=== PATIENT | male | born 1990 ===

== ENCOUNTER 2018-07-02 17:35 | Emergency (ER) | payer OTHER ==
[~2018-07-02] VITALS: Ht 175.3 cm; Wt 65.9 kg
[~2018-07-02 17:35] MED LIST: HYDR-3307; METH750T87
[2018-07-02 17:50] VITALS: BP 123/73
[2018-07-02] MEDS ORDERED: METHOCARBAMOL 750 MG TABLET ONE (18:16)
[2018-07-02] MEDS ORDERED: KETOROLAC 30 MG/1 ML ONE (18:16)
[2018-07-02] MEDS ORDERED: METHOCARBAMOL 750 MG TABLET PO ONE (18:30)
[2018-07-02] MEDS ORDERED: KETOROLAC 30 MG/1 ML IM ONE (18:30)
== END 2018-07-02 19:38 | disposition home or self-care (01) ==
LOC: ED 19:21
DX: M54.6 Pain in thoracic spine (principal); S16.1XXA Strain of muscle, fascia and tendon at neck level, initial encounter; F17.200 Nicotine dependence, unspecified, uncomplicated; V89.2XXA Person injured in unspecified motor-vehicle accident, traffic, initial encounter; Y93.89 Activity, other specified; Y99.8 Other external cause status; Y92.410 Unspecified street and highway as the place of occurrence of the external cause
CPT/HCPCS: 71101; 72072; 72125; 96372; 99284; J1885

== ENCOUNTER 2020-06-04 07:15 | Emergency (ER) | payer OTHER ==
[~2020-06-04] VITALS: Ht 172.7 cm; Wt 65.0 kg
[~2020-06-04 07:15] MED LIST changes: +HYDR-3246; -HYDR-3307
[2020-06-04 07:22] VITALS: BP 124/63
[2020-06-04] MEDS ORDERED: SODIUM CHLORIDE FLUSH 10ML SYR IVF ONE (08:30)
[2020-06-04 08:55] LABS: BASOPHILS % (AUTO) 0 % (0-1); EOSINOPHILS % (AUTO) 1 % (1-7); LYMPHOCYTES % (AUTO) 14 % (22-44); MEAN CORPUSCULAR HEMOGLOBIN 32.1 pg (27.5-34.5); MEAN CORPUSCULAR HGB CONC 33.2 g/dL (33.2-36.2); MEAN PLATELET VOLUME 8.2 fL (7.4-10.4); MONOCYTES % (AUTO) 10 % (2-9); NEUTROPHILS % (AUTO) 76 % (42-75); PLATELET COUNT 278 x10^3/uL (130-400); RED CELL DISTRIBUTION WIDTH 13.5 % (9.4-14.8)
[2020-06-04 09:03] LABS: ALBUMIN 3.8 g/dL (3.4-5.0); CALCIUM 8.8 mg/dL (8.5-10.1); CREATININE 0.76 mg/dL (0.7-1.3)
[2020-06-04 09:13] LABS: ANION GAP 5 mmol/L (5-15); CHLORIDE 105 mmol/L (98-107)
[2020-06-04 09:14] LABS: MD SCAN
[2020-06-04] MEDS ORDERED: DEXAMETHASONE 4 MG TABLET ONE (09:26)
[2020-06-04] MEDS ORDERED: DEXAMETHASONE 4 MG TABLET PO ONE (09:30)
== END 2020-06-04 09:38 | disposition home or self-care (01) ==
LOC: ED 09:30
DX: J03.00 Acute streptococcal tonsillitis, unspecified (principal); F17.200 Nicotine dependence, unspecified, uncomplicated
CPT/HCPCS: 36415; 80048; 82040; 85025; 87081; 87147; 87880; 99283